=== PATIENT | female | born 1960 | race Caucasian/White ===

== ENCOUNTER 2018-01-06 15:46 | Emergency (ER) | payer BC ==
[2018-01-06] MEDS ORDERED: predniSONE 20 MG TAB ONE (17:53)
[2018-01-06] MEDS ORDERED: Amoxicillin/Potassium Clav 500 MG TAB ONE (17:53)
[2018-01-06] MEDS ORDERED: Benzonatate 100 MG CAP ONE (17:53)
[2018-01-06] MEDS ORDERED: AMOXicillin 250 MG CAP ONE (17:54)
--- NOTE | 2018-01-06 20:24 | RAD ---
TWO VIEWS CHEST: 01/06/18 HISTORY: Chest pain. PA and lateral views of the chest is obtained. The lungs are well aerated. No evidence of active intrathoracic disease seen. No evidence of effusion s, pneumonia, or pneumothorax seen. IMPRESSION: Unremarkable two views chest. POS: [facility]
== END 2018-01-06 18:05 | disposition home or self-care (01) ==
LOC: MADERS 15:46
DX: J20.9 Acute bronchitis, unspecified (principal); Z79.899 Other long term (current) drug therapy
CPT/HCPCS: 71046; 93005; J7506

== ENCOUNTER 2024-06-19 15:06 | Outpatient (CLI) | payer OTHER | END 2024-06-19 15:07 | disposition home or self-care (01) | LOC: MADRAD 15:06 | PROVIDERS: ATTEND Emergency Medicine | DX: M47.22 Other spondylosis with radiculopathy, cervical region (principal) | CPT/HCPCS: 72040 ==